=== PATIENT | male | born 1980 | race American Indian/Alaskan Native ===

== ENCOUNTER 2018-03-08 13:43 | Day surgery (SDC) | payer OTHER ==
[2018-03-08] MEDS ORDERED: NACL 0.9% 500 ML 500 ML IV SCH (15:00)
[2018-03-08 18:56] VITALS: BP 139/77
== END 2018-03-08 19:04 | disposition home or self-care (01) ==
LOC: CATHLABREC 13:43
PROVIDERS: ATTEND Internal Medicine Pulmonary Disease
DX: D50.0 Iron deficiency anemia secondary to blood loss (chronic) (principal)
CPT/HCPCS: 36430; 86850; 86900; 86901; 86920; J7040; P9016